=== PATIENT | male | born 1995 | race Caucasian/White ===

== ENCOUNTER 2016-10-21 22:00 | Inpatient (IN) | payer OTHER ==
[~2016-10-21] VITALS: Ht 177.8 cm; Wt 65.8 kg
--- NOTE | ~2016-10-21 | PN ---
Unit #: [id number] #: [id number] Patient: DANIKA SANTOS [id number] [facility] [address] [place] [address] [id number] MR#: [id number] NAME: DANIKA SANTOS ROOM: [facility] Age: 21 Sex: M Admission Date: 10/22/2016 : 1995 Attending Physician: Jacqueline Monteiro M.D. Admitting Physician: Jacqueline Monteiro M.D. Primary Care Physician: Primary Care Physician Maricel GILLESPIE NOTES DATE OF SERVICE 10/25/2016 DISCUSSION Mr. Santos is a 21-year-old white male who was seen today. Chart was reviewed and case was discussed with staff. He has been anxious, withdrawn, and rather seclusive to himself though has been showing very inappropriate attitude and poor motivation towards treatment and constantly pushing to leave and showing minimal interest towards treatment. There has been a typical pattern of presentation that has led to poor prognosis. MENTAL STATUS EXAMINATION Young white male who is casually dressed with fair personal hygiene, appears to be in no acute distress or discomfort. He was awake and alert with impaired attention and concentration. His mood is anxious with congruent affect. He denies any suicidal or homicidal ideations. His insight and judgment remain slightly impaired. TREATMENT PLAN 1. We will continue him on his current medications and treatment protocol. We will monitor his response to the medications and make further adjustments as needed. 2. We will continue to follow up. Dictated by... Beatris Mcgraw/terenceg TD: 10/25/2016 09:16 JOB #: [id number] Unit #: [id number] #: [id number] Patient: DANIKA SANTOS PROGRESS NOTES Page 1 of 1 X Jacqueline Monteiro MD PROGRESS NOTE
--- NOTE | ~2016-10-21 | PN ---
Unit #: [id number] #: [id number] Patient: DANIKA SANTOS [id number] [facility] [address] [place] [address] [id number] MR#: [id number] NAME: DANIKA SANTOS ROOM: [facility] Age: 21 Sex: M Admission Date: 10/22/2016 : 1995 Attending Physician: Jacqueline Monteiro M.D. Admitting Physician: Jacqueline Monteiro M.D. Primary Care Physician: Primary Care Physician Maricel GILLESPIE NOTES DATE OF SERVICE 10/23/2016 DISCUSSION Mr. Santos is a 21-year-old white male who was seen today. Chart was reviewed and case was discussed with the staff. He has been anxious and withdrawn though has not shown any agitation or irritability and has been cooperative with treatment recommendations and has been taking the medications and tolerating them fairly well with no reported side effects. MENTAL STATUS EXAMINATION Young white male who is casually dressed with fair personal hygiene, appears to be in no acute distress or discomfort. He was awake and alert on interaction with intact orientation. His mood is anxious with congruent affect. He denies any suicidal or homicidal ideations. His insight and judgment remain significantly impaired. TREATMENT PLAN 1. We will continue him on his current treatment protocol including her detox, and we will monitor his response and make further adjustments as needed. 2. We will continue to follow up. Dictated by... Jacqueline Monteiro M.D. IAA/terenceg TD: 10/24/2016 07:49 JOB #: [id number] [facility] PROGRESS NOTES Page 1 of 1 X Jacqueline Monteiro MD PROGRESS NOTE
--- NOTE | ~2016-10-21 | PN ---
Unit #: [id number] #: [id number] Patient: DANIKA SANTOS [id number] [facility] [address] [place] [address] [id number] MR#: [id number] NAME: DANIKA SANTOS ROOM: 61 Age: 21 Sex: M Admission Date: 10/22/2016 : 1995 Attending Physician: Jacqueline Monteiro M.D. Admitting Physician: Jacqueline Monteiro M.D. Primary Care Physician: Primary Care Physician Maricel ARGUELLES PROGRESS NOTES DATE OF SERVICE 10/26/2016 DISCUSSION Mr. Santos is a 21-year-old white male who was seen today. Chart was reviewed and case was discussed with staff. He reports doing fairly well and appears to be coming out of the detox without any complications. He has been taking the medications and tolerating them fairly well with no reported side effects. MENTAL STATUS EXAMINATION Young white male who is casually dressed with fair personal hygiene, appears to be in no acute distress or discomfort. He was awake and alert on interaction with intact orientation. His mood is anxious with congruent affect. He denies any suicidal or homicidal ideations. His insight and judgment remain slightly impaired. TREATMENT PLAN 1. We will continue him on his current medications and treatment protocol. We will monitor his response to the medications and make further adjustments as needed. 2. We will continue to follow up. Dictated by... Jacqueline Monteiro M.D. IAA/bzg TD: 10/26/2016 14:08 JOB #: [id number] Unit #: [id number] #: [id number] Patient: DANIKA SANTOS PROGRESS NOTES Page 1 of 1 X Jacqueline Monteiro MD X PROGRESS NOTE
--- NOTE | ~2016-10-21 | PN ---
Unit #: [id number] #: [id number] Patient: DANIKA SANTOS [id number] [facility] [address] [place] [address] [id number] I MR#: [id number] NAME: DANIKA SANTOS ROOM: [facility] Age: 21 Sex: M Admission Date: 10/22/2016 : 1995 Attending Physician: Jacqueline Monteiro M.D. Admitting Physician: Jacqueline Monteiro M.D. Primary Care Physician: Primary Care Physician Maricel GILLESPIE NOTES DATE OF SERVICE: 10/24/2016 IDENTIFYING DATA Mr. Santos is a 21-year-old white male with history of substance abuse and mood disorder, who was seen today and chart was reviewed, and the case was discussed with the staff. He was seen to be in no acute distress or discomfort. He has been seclusive to himself, and lying in his bed and has not been able to participate in treatment-related activities. Meanwhile, he has been taking medications and tolerating them fairly well with no reported side effects. MENTAL STATUS EXAMINATION Young white male, who was casually dressed with fair personal hygiene, appears to be in no acute distress or discomfort. He was awake and alert with impaired attention and concentration. His mood was anxious and depressed with a congruent affect. He denies any suicidal or homicidal ideations. His insight and judgment remain slightly impaired. TREATMENT PLAN 1. We will continue his current medications and treatment protocol. We will monitor his response to the medications and make further adjustments as needed. 2. We will continue to follow up. Dictated by... Beatris Mcgraw/armando TD: 10/24/2016 11:38 JOB #: [id number] Unit #: [id number] #: [id number] Patient: DANIKA SANTOS TATIANASORAYA JOSE MIGUEL NOTES Page 1 of 1 X Jacqueline Monteiro MD PROGRESS NOTE
--- NOTE | ~2016-10-21 | DS ---
Unit #: [id number] #: [id number] Patient: DANIKA SANTOS [id number] [place] [address] [id number] I MR#: [id number] NAME: DANIKA SANTOS ROOM: [facility] Age: 21 Sex: M Admission Date: 10/22/2016 : 1995 Discharge Date: 10/27/2016 Attending Physician: Jacqueline Monteiro M.D. Primary Care Physician: Primary Care Physician No DISCHARGE SUMMARY IDENTIFICATION DATA Mr. Santos is a 21-year-old single white male who is a resident of [place], [place], and is known to us from previous encounter and was self-referred to the hospital on voluntary basis with a chief complaint of "suicidal ideation" and plan to overdose on heroin. DISCHARGE DIAGNOSES PSYCHIATRIC: Major depressive disorder, recurrent, moderate, without psychotic features. Opiate dependence, moderate, in acute withdrawals. Benzodiazepine dependence, moderate. MEDICAL: Hepatitis C. STRESSORS: Multiple psychosocial stressors. HISTORY OF PRESENT ILLNESS Same as in initial psychiatric evaluation. PAST PSYCHIATRIC HISTORY Same as in initial psychiatric evaluation. PAST MEDICAL HISTORY Same as in initial psychiatric evaluation. HOSPITAL COURSE The patient was admitted to the adult psychiatric chemical dependence unit at [facility] and was oriented to the hospital environment. Routine p.r.n. medications were initiated, and he was started back on his home medications, and opiate and benzo detox both were initiated, and he was closely monitored. He was taking the medications regularly and was tolerating them fairly well and has been able to show decent therapeutic response but was able to come out of the detox without any complications and was willing to continue treatment on outpatient basis. He was denying any suicidal or homicidal ideations and was not seen to be a danger to self or anyone else. As such it was decided that he will be discharged home, and we will continue treatment on outpatient basis. DISCHARGE MEDICATIONS None. CONDITION AT DISCHARGE Stable. PROGNOSIS Unit #: [id number] #: [id number] Patient: DANIKA SANTOS. Dictated by... Jacqueline Monteiro M.D. IAA/bzg TD: 10/27/2016 09:14 JOB #: [id number] DISCHARGE SUMMARY Page 1 of 1 X Jacqueline Monteiro MD DISCHARGE SUMMARY
--- NOTE | ~2016-10-21 | HP ---
Unit #: [id number] #: [id number] Patient: DANIKA SANTOS [id number] [place] [address] [id number] I MR#: [id number] NAME: DANIKA SANTOS ROOM: 61 Age: 21 Sex: M Admission Date: 10/22/2016 : 1995 Attending Physician: Jacqueline Monteiro M.D. Admitting Physician: Jacqueline Monteiro M.D. Primary Care Physician: Primary Care Physician No HISTORY AND PHYSICAL HISTORY OF PRESENT ILLNESS The patient is a 21-year-old male who states he is here for heroin approximately one gram per day and Xanax two bars per day. PAST MEDICAL HISTORY None. PAST SURGICAL HISTORY None. SOCIAL HISTORY Positive for smoking and heroin and Xanax. ALLERGIES None. FAMILY HISTORY Noncontributory. REVIEW OF SYSTEMS CONSTITUTIONAL: No fever or chills. HEENT: Denies any sore throat, ear pain or runny nose. CARDIOVASCULAR: Denies chest pain, irregular heart rhythm or palpitations. CHEST: Denies shortness of breath or cough. No hemoptysis. GASTROINTESTINAL: Denies nausea, vomiting, diarrhea or chronic constipation. ENDOCRINE: Denies history of increased thirst or urination. No recent significant weight loss or gain. GENITOURINARY: Denies dysuria, frequency, or hematuria. SKIN: Denies any rashes. HEMATOLOGIC: Denies history of increased bleeding or bruising. MUSCULOSKELETAL: Denies any hot, swollen joints. No generalized muscle pain. NEUROLOGIC: Denies problems with vision or speech. No frequent, severe headaches. No numbness, tingling or weakness in any extremities. Denies loss of bladder or bowel control. CURRENT MEDICATIONS None. Unit #: [id number] #: [id number] Patient: DANIKA SANTOS PHYSICAL EXAMINATION GENERAL: Alert, oriented in no acute distress. The patient appears very sleepy lying in bed. VITAL SIGNS: Temperature 98.1, blood pressure 110/88, heart rate 84, respirations 18. Height and weight currently not available. SKIN: Warm and dry without rash. Track taylor to the right AC. HEENT: Normocephalic. TMs not viewed. Oral and nasal passages clear. Conjunctivae clear. PERRLA. EOMs intact. NECK: Supple without lymphadenopathy or thyromegaly. HEART: Regular rate and rhythm without murmur. LUNGS: Clear. ABDOMEN: Soft, nontender, without masses or hepatosplenomegaly. : Not done. EXTREMITIES: No evidence of cyanosis, clubbing or edema. Moves all without focal deficit. NEUROLOGICAL: Grossly within normal limits. Cranial Nerves: II: Visual garcia are intact. III, IV AND : Extraocular movements are intact. Pupils are equal, round and reactive to light. V: Facial sensation is grossly normal. VII: Facial movements and expression are normal. VIII: Auditory acuity grossly intact. IX, X: Uvula is midline. Phonation is normal. XI: Patient shrugs shoulders and turns head normally. XII: Tongue protrudes in the midline. Sensory and Motor Function: Sensory and motor sensation is grossly normal. Motor: moves all extremities well. Coordination: Gait is normal. Deep Tendon Reflexes: Intact. IMPRESSION Psychiatric admission. RECOMMENDATIONS Psychiatric, per psychiatrist. MEDICAL: I see no contraindications to participating in facility's activities. MEDICAL PROGNOSIS Good. Dictated by... Elder Salazar/medardo TD: 10/23/2016 04:02 JOB #: [id number] Unit #: [id number] #: [id number] Patient: DANIKA SANTOS HISTORY AND PHYSICAL Page 1 of X Frieda Weber APR X HISTORY AND PHYSICAL
--- NOTE | ~2016-10-21 | A ---
[facility] Nutrition Therapy DATE: 10/23/16 Patient: DANIKA SANTOS Physician: AFAIRF Address: [address] Room/Bed: [address], Zip: [place] [address] Admit Date: 10/22/16 Date of : [birth year] Height: 5 10 Weight: [id number] NUTRITIONAL ASSESSMENT: REASON: UNINTENTIONAL WEIGHT LOSS PATIENT ADMITTED FOR DETOX AND SI PMH: HEP C Anthropometrics: HT: 70", WT: 145#, BMI: 20.8 Labs: NO LABS AVAILABLE Meds: MVI, DETOX PROTOCOL Assessment: PATIENT IS A 21 Y/O MALE ADMITTED FOR SI AND DETOX. PATIENT IS CURRENTLY UNEMPLOYED, HOMELESS, SMOKES 1 PPD, AND HAS DAILY HEROIN, METH, AND XANAX USE. UPON ADMIT PATIENT STATED A FAIR APPETITE WITH A 40# WEIGHT LOSS OVER LAST SEVERAL MONTHS, AND HE IS NOT SLEEPING. WEIGHT HX PER [employer] SHOWS A 5-10# WEIGHT GAIN FROM 2 YEARS AGO AND HIS UBW SEEMS TO BE ~140# OVER THE LAST 8 YEARS. NURSING DID REPORT POOR PO INTAKES YESTERD. PATIENT IS ACTIVELY DETOXING AND HAS C/O ABDOMINAL CRAMPING, UPSET STOMACH, AND SOME NAUSEA. THIS RD SUSPECTS WEIGHT AND APPETITE WILL STABILIZE AND POSSIBLY INCREASE FOLLOWING DETOX. WILL CONTINUE TO MONITOR WEIGHTS AND PO INTAKES. THERE ARE NO SKIN OR GI ISSUES NOTED ATT. PATIENT IS ON A REGULAR DIET AND HIS BMI IS WITHIN A HEALTHY RANGE. Dx: UNINTENTIONAL WEIGHT LOSS R/T DRUG USE AEB SELF-REPORTED WEIGHT LOSS, NUTRITIONAL RISK POINT Intervention: REGULAR DIET, MEDS PER MD, DETOX, PSYCH Monitoring, Evaluation and Goals: 1. ADEQUATE PO INTAKES >50% OF MEALS 2. PREVENT, CORRECT MICRO/MACRO NUTRIENT DEFICIENCIES 3. WEIGHT; MAINTAIN CURRENT WEIGHT, PREVENT WEIGHT LOSS MONITOR: WEIGHTS, LABS, PO/FLUID INTAKES Recommendations: 1. CONTINUE REGULAR DIET TOLERATED. OFFER SNACKS BETWEEN MEALS. 2. ENCOURAGE ADEQUATE PO AND FLUID INTAKES 3. OBTAIN WEIGHTS ROUTINELY (EVERY 3-4 DAYS) 4. IF PO INTAKES ARE CONSISTENTLY BELOW 50% OF MEALS PLEASE ORDER ENSURE BID TO PROMOTE [facility] Nutrition Therapy DATE: 10/23/16 Patient: DANIKA SANTOS Physician: KALIF Address: [address] Room/Bed: [address] State, Zip: [place] [address] Admit Date: 10/22/16 Date of : [birth year] Height: 5 10 Weight: [id number] ADEQUATE KCAL AND PROTEIN INTAKES RD TO F/U PER PROTOCOL AND PRN R/T PAIENT MILDLY COMPROMISED Respectfully, WHITLEY HOLLINS, RD, LD [facility] cc: client file
--- NOTE | ~2016-10-21 | PA ---
Unit #: [id number] #: [id number] Patient: DANIKA SANTOS [id number] [facility] [place] [address] [id number] I MR#: [id number] NAME: DANIKA SANTOS ROOM: 61 Age: 21 Sex: M Admission Date: 10/22/2016 : 1995 Date of Assessment: Attending Physician: Jacqueline Monteiro M.D. Admitting Physician: Jacqueline Monteiro M.D. Primary Care Physician: Primary Care Physician No PSYCHIATRIC ASSESSMENT IDENTIFYING DATA Mr. Santos is a 21-year-old, single, white male, who is a resident of [place], [place], and is known to us from previous encounter, was self-referred to the hospital on a voluntary basis. CHIEF COMPLAINT "Suicidal ideation and plan to overdose on heroin." HISTORY OF PRESENT ILLNESS Mr. Santos is a 21-year-old white male with a history of substance abuse and mood disorder, who was self-referred to the hospital reporting increasing depression and suicidal ideation with a plan to overdose on heroin. Reports that he has been using a gram of IV heroin a day and he has been using heroin for the past 7 years and he started using drugs and reported he takes 2 bars of Xanax on daily basis and has been taking the Xanax for the past couple of months and last time he used heroin was yesterday, he used a gram of IV and reports he took 2 bars of Xanax today and does report increasing depression, anxiety, irritability, restlessness, feelings of hopelessness and helplessness, and suicidal ideations with intent and plan. SUBSTANCE ABUSE HISTORY The patient reports extensive history of substance abuse and dependence including cannabis, cocaine, opioids, methamphetamine, benzodiazepines, and currently, it appears that IV heroin and Xanax has been his drug of choice. PAST PSYCHIATRIC HISTORY The patient has had a history of chemical dependency treatment at [facility], and has had outpatient treatment through [facility]. Review of the medical records indicate that currently he is not active in any treatment program, is not seeing a psychiatrist, and is not taking any psychotropic medications. PAST MEDICAL HISTORY The patient's medical history is significant for hepatitis C. ALLERGIES No known medication allergies. PERSONAL AND SOCIAL HISTORY A 21-year-old, white male, who reports that he is single, unemployed, and is essentially homeless and has poor social support system. Unit #: [id number] #: [id number] Patient: DANIKA SANTOS MENTAL STATUS EXAMINATION Young white male, who was casually dressed with fair personal hygiene, appears to be in no acute distress or discomfort. He was awake and alert on interaction with intact orientation to time, place, and person. His mood was anxious and depressed with a congruent affect. His speech was slow and restricted in content. His thought processes were disorganized with some looseness of associations and flight of ideas and suicidal ideations. His insight and judgment remain significantly impaired. DIAGNOSTIC IMPRESSION Psychiatric: Major depressive disorder, recurrent, moderate, without psychotic features; opioid dependence, moderate and acute withdrawals; benzodiazepine dependence, moderate and acute withdrawals. Medical: Hepatitis C. Stressors: Moderate psychosocial stressors. TREATMENT PLAN 1. The patient has presented with a history of substance abuse and mood disorder, and has been decompensating and will need inpatient hospitalization for safety and stabilization. We will start him back on his home medications. We will adjust the medications and monitor response. 2. Supportive therapy was provided to the patient. 3. Safe, structured, and nourishing environment will be provided. ESTIMATED LENGTH OF STAY 5 to 7 days. ABILITY TO HELP SELF Limited. WILLINGNESS TO HELP SELF The patient appears to be willing to help self. STRENGTHS 1. Communicative. 2. Cooperative. PROBLEMS 1. Chronic dysphoric symptoms. 2. Poor social support system. DISCHARGE CRITERIA This will be contingent upon the patient's ability to show resolution of his depression and anxiety and ability to go through detox without having any significant withdrawal symptoms. Dictated by... Beatris Mcgraw/armando TD: 10/23/2016 23:36 JOB #: [id number] Unit #: [id number] #: [id number] Patient: DANIKA SANTOS PSYCHIATRIC ASSESSMENT Page 1 of 1 X Jacqueline Monteiro MD X PSYCHIATRIC ASSESSMENT
[~2016-10-21 22:00] MED LIST: KEFLEX500 M2 PO; NO MEDICATIONS; [UNRECOGNIZED DRUG - OTHER] PO
[2016-10-23 12:41] LABS: URINE APPEARANCE CLEAR; URINE BILIRUBIN NEG (NEG); URINE BLOOD NEG (NEG); URINE COLOR YELLOW; URINE GLUCOSE NEG (NEG); URINE KETONE NEG (NEG); URINE LEUKOCYTE ESTERASE TRACE (NEG); URINE NITRATE NEG (NEG); URINE PROTEIN NEG (NEG); URINE SPECIFIC GRAVITY 1.005 (1.003-1.035); URINE UROBILINOGEN 0.2 MG/DL (NEG)
[2016-10-23 14:02] LABS: AMPHETAMINE NEG (NEG); BARBITURATES NEG (NEG); BENZODIAZEPINES NEG (NEG); COCAINE NEG (NEG); MARIJUANA NEG (NEG); OPIATES POS (NEG); TRICYCLIC ANTIDEPRESSANTS NEG (NEG); U METHADONE NEG (NEG)
== END 2016-10-27 11:30 | disposition home or self-care (01) | DRG 885 ==
LOC: POF 10-22 11:36 → P2L 10-22 11:36
PROVIDERS: Psychiatry & Neurology Psychiatry
PROC: HZ2ZZZZ Detoxification Services for Substance Abuse Treatment (ICD-10-PCS; principal; 2016-10-22)
DX: F33.1 Major depressive disorder, recurrent, moderate (principal); F11.23 Opioid dependence with withdrawal; F13.239 Sedative, hypnotic or anxiolytic dependence with withdrawal, unspecified; B19.20 Unspecified viral hepatitis C without hepatic coma
CPT/HCPCS: 80307; 81003